=== PATIENT | female | born 1975 | race Caucasian/White ===

== ENCOUNTER 2017-08-21 12:19 | Observation (INO) ==
[2017-08-21 13:02] LABS: Bilirubin,Urine Negative (Negative); Blood,Urine Trace (Negative); Clarity,Urine Clear (Clear); Color,Urine Yellow (Yellow); Glucose,Urine (UA) >=1000 mg/dL (Normal); Ketones,Urine 80 mg/dL (Negative); Leukocyte Esterase,Urine Negative (Negative); Nitrite,Urine Negative (Negative); PH,Urine 5.5 pH Units (5.0-8.0); Protein,Urine 30 mg/dL (Neg-Trace); Specific Gravity,Urine > 1.030 (1.010-1.025); Urobilinogen,Urine Normal (Normal)
[2017-08-21 13:07] LABS: Bacteria,Urine Few per hpf (None-Few); Hyaline Casts,Urine Few per lpf (None-Few); Squamous Epithelial Cell,Urine Many per lpf (None-Few)
[2017-08-21 13:14] LABS: Basophils % 0.2 %; Eosinophils # 0.5 K/mcL (0.0-0.6); Eosinophils % 3.4 %; Hematocrit 45.9 % (35.3-44.9); Hemoglobin 15.3 g/dL (11.5-15.4); Immature Granulocytes % 0.4 % (0-4); Lymphocytes # 2.5 K/mcL (0.6-4.6); Lymphocytes % 18.2 %; Mean Corpuscular HGB Conc 33.3 g/dL (31.6-35.5); Mean Corpuscular Hemoglobin 28.7 pg (28.0-33.3); Mean Platelet Volume 9.9 fL (9.4-12.4); Monocytes # 0.7 K/mcL (0.0-1.3); Monocytes % 5.2 %; Platelet Count 391 K/mcL (140-400); Red Blood Count 5.34 M/mcL (3.82-4.97); Red Cell Distribution Width 13.3 % (11.5-14.5); Segmented Neutrophils % 72.6 %
[2017-08-21 13:28] LABS: RBC,Urine 0-3 per hpf (0-3)
[2017-08-21 14:01] LABS: Alanine Aminotransferase 24 Units/L (7-52); Albumin 4.4 g/dL (3.5-5.7); Albumin/Globulin Ratio 1.3 (1.1-2.2); Alkaline Phosphatase 90 Units/L (34-104); Amylase 24 Units/L (29-103); Aspartate Amino Transferase 24 Units/L (13-39); BUN/Creatinine Ratio 39 (6-26); Bilirubin,Direct 0.1 mg/dL (0.0-0.2); Bilirubin,Indirect 0.3 mg/dL (0.0-1.2); Bilirubin,Total 0.4 mg/dL (0.3-1.0); Blood Urea Nitrogen 19 mg/dL (6-20); Calcium 9.8 mg/dL (8.6-10.3); Carbon Dioxide 21 mEq/L (23-29); Chloride 101 mEq/L (98-107); Globulin 3.5 g/dL (2.4-3.5); Glucose 121 mg/dL (70-105); Lipase 21 Units/L (11-82); Osmolality,Calculated 284 (280-300); Potassium 4.2 mEq/L (3.5-5.1); Sodium 135 mEq/L (136-145); Total Protein 7.9 g/dL (6.4-8.9); eGFR For African Americans > 60 (> 60); eGFR For Non-African Americans > 60 (> 60)
[2017-08-21] MEDS ORDERED: Ketorolac 60 MG/2 ML VIAL IM ONE (14:15)
--- NOTE | 2017-08-21 14:19 | Emergency Department Note ---
Disposition Clinical Impression: Ureteral calculus, left, Ascites Abdominal pain Qualifiers: Abdominal location: right upper quadrant Qualified Code(s): R10.11 - Right upper quadrant pain Disposition: Admitted As Inpatient Condition: Good Time of Disposition: 17:45 Abdominal Pain HPI - General Chief Complaint: ED Abdominal Pain Stated Complaint: ABD Pain Time Seen by Provider: 08/21/17 13:52 Source: patient Mode of arrival: ambulatory Limitations: no limitations, age Nursing Notes Reviewed: Yes Vital Signs Reviewed: Yes - History of Present Illness HPI Narrative: This is a 41 year-old female with history of HTN, HLD, and DM, who presents with diffuse abdominal pain and right flank pain for the past 3 weeks. The pain has worsened (particularly in the right flank) today. Last BM was this morning and was normal; no diarrhea, constipation or blood. Patient denies any associated fever or urinary symptoms. She has seen Dr. Harris and had an EGD on , which she says was negative. A CT of the abdomen has been requested but not obtained yet. Pt Subjective Complaint: abdominal pain Onset (ago): week(s) (3) Consistency: Worsening Location: diffuse, R flank Pain Scale: 9 Quality: sharp Radiation: R flank Migration to: no migration Improves with: nothing Worsens with: nothing Associated symptoms: Denies: nausea, vomiting, diarrhea, fever, chills, constipation, dysuria, hematemesis, hematochezia, melena, hematuria, anorexia Treatments prior to arrival: NSAIDs - Related Data Comment: s/p hysterectomy Home Medications Medication Instructions Recorded Confirmed Ascorbic Acid [Vitamin C] 1,000 mg PO DAILY 08/21/17 08/21/17 Atorvastatin Calcium [Lipitor] 20 mg PO HS 08/21/17 08/21/17 Calcium Carbonate [Calcium] 500 mg PO DAILY 08/21/17 08/21/17 Canagliflozin [Invokana] 10 mg PO DAILY 08/21/17 08/21/17 Cholecalciferol (D-3) [Vitamin D] 1,000 unit PO DAILY 08/21/17 08/21/17 Cyanocobalamin (Vitamin B-12) 1,000 mcg PO DAILY 08/21/17 08/21/17 [Vitamin B12] DULoxetine [Cymbalta] 20 mg PO DAILY 08/21/17 08/21/17 Dicyclomine [Bentyl] 10 mg PO QID 08/21/17 08/21/17 Exenatide Microspheres [Bydureon 2 mg PO QWEEK 08/21/17 08/21/17 Pen] Lisinopril [Lisinopril] 2.5 mg PO DAILY 08/21/17 08/21/17 Omeprazole [PriLOSEC] 20 mg PO BID 08/21/17 08/21/17 metFORMIN [Glucophage] 500 mg PO BIDWM 08/21/17 08/21/17 Allergies Allergy/AdvReac Type Severity Reaction Status Date / Time No Known Allergies Allergy Verified 08/08/17 10:28 All systems ED: reviewed and negative except as stated. Constitutional: Denies: fever Cardiovascular: Denies: chest pain Respiratory: Denies: dyspnea Gastrointestinal: Reports: as per HPI, abdominal pain. Denies: nausea, vomiting , constipation, hematemesis, melena, hematochezia Genitourinary: Reports: as per HPI Abdominal Pain PMH - Past Medical History Medical history: Reports: arthritis, diabetes, GERD, hyperlipidemia, hypertension Female Surgical History: Reports: hysterectomy, orthopedic, other Psychiatric history: Reports: anxiety, depression - Social History Smoking status: Current every day smoker Alcohol use: Reports: occasionally Drug use: Reports: none Physical Exam - General Limitations: no limitations General appearance: alert - Head Head exam: atraumatic, normocephalic - Eye Eye exam: Present: normal appearance - ENT ENT exam: normal exam, normal oropharynx - Neck Neck exam: Present: normal inspection - Respiratory Respiratory exam: Present: normal lung sounds bilaterally. Absent: wheezes - Cardiovascular Cardiovascular exam: Present: regular rate, normal rhythm, normal heart sounds - Abdominal Exam Abdominal exam: Present: soft, Non-Tender, normal bowel sounds. Absent: distention, guarding, rebound, rigidity - Extremities Exam Extremities exam: Present: normal inspection. Absent: calf tenderness - Back Exam Back exam: Present: normal inspection. Absent: tenderness, CVA tenderness (R), CVA tenderness (L) - Neurological Exam Neurological exam: Present: alert, oriented X3 - Psychiatric Psychiatric exam: Present: normal affect, normal mood - Skin Skin exam: Present: warm, dry, intact Course - Reevaluation(s) Reevaluation #1: On recheck, patient remains comfortable-appearing. She has a left ureteral stone (which I have confirmed by reviewing the CT myself), but her flank pain is on the right. Urine is concentrated and a somewhat dirty sample, but is not clearly infected. We will hydrate and check a cath specimen. CT showed abnormalities concerning for peritoneal carcinomatosis. I have paged Dr. Villafuerte for his recommendations. Time: 15:46 - Consultations Consultation #1: Discussed case with Dr. Villafuerte. He says the next step would be diagnostic parascentesis. He is available to see patient in his clinic tomorrow or Friday. I've paged the hospitalist to discuss brining patient for IR to perform the procedure tomorrow, vs. discharge/close outpatient follow-up. Time: 17:00 Consultation #2: Discussed case with Dr. Villatoro. He has accepted patient for obs, to tap ascites, and for symptom control. Time: 17:41 Vital Signs Temperature 98.2 F 08/21/17 12:26 Pulse Rate 110 08/21/17 12:26 Respiratory Rate 18 08/21/17 12:26 Blood Pressure 139/91 08/21/17 12:26 O2 Sat by Pulse Oximetry 95 08/21/17 12:26 Temperature 98.2 F 08/21/17 20:27 Pulse Rate 97 08/21/17 20:27 Respiratory Rate 16 08/21/17 20:27 Blood Pressure 144/90 08/21/17 20:27 O2 Sat by Pulse Oximetry 94 08/21/17 20:27 Oxygen Delivery Oxygen Delivery Room Air Abdominal Pain - Lab Data Lab results reviewed: Yes I reviewed the patient's lab results. Result diagrams: 08/21/17 12:56 08/21/17 12:56 Lab Results 08/21/17 08/21/17 08/21/17 Range/Units 12:55 12:56 12:56 WBC 13.8 H (4.3-11.1) K/mcL RBC 5.34 H (3.82-4.97) M/mcL Hgb 15.3 (11.5-15.4) g/dL Hct 45.9 H (35.3-44.9) % MCV 86.0 (83.0-100.0) fL MCH 28.7 (28.0-33.3) pg MCHC 33.3 (31.6-35.5) g/dL RDW 13.3 (11.5-14.5) % Plt Count 391 (140-400) K/mcL MPV 9.9 (9.4-12.4) fL Immature Gran % 0.4 (0-4) % Seg Neutrophils % 72.6 % Lymphocytes % 18.2 % Monocytes % 5.2 % Eosinophils % 3.4 % Basophils % 0.2 % Neutrophils # 10.0 H (1.6-8.9) K/mcL Lymphocytes # 2.5 (0.6-4.6) K/mcL Monocytes # 0.7 (0.0-1.3) K/mcL Eosinophils # 0.5 (0.0-0.6) K/mcL Basophils # 0.0 (0.0-0.2) K/mcL Sodium 135 L (136-145) mEq/L Potassium 4.2 (3.5-5.1) mEq/L Chloride 101 (98-107) mEq/L Carbon Dioxide 21 L (23-29) mEq/L BUN 19 (6-20) mg/dL Creatinine 0.49 L (0.60-1.20) mg/dL Est GFR ( Amer) > 60 (> 60) Est GFR (Non-Af Amer) > 60 (> 60) BUN/Creatinine Ratio 39 H (6-26) Glucose 121 H (70-105) mg/dL Est Mean Plasma Glucose mg/dl Hemoglobin A1c ( - 5.6) % Calculated Osmolality 284 (280-300) Calcium 9.8 (8.6-10.3) mg/dL Total Bilirubin 0.4 (0.3-1.0) mg/dL Direct Bilirubin 0.1 (0.0-0.2) mg/dL Indirect Bilirubin 0.3 (0.0-1.2) mg/dL AST 24 (13-39) Units/L ALT 24 (7-52) Units/L Alkaline Phosphatase 90 (34-104) Units/L Serum Total Protein 7.9 (6.4-8.9) g/dL Albumin 4.4 (3.5-5.7) g/dL Globulin 3.5 (2.4-3.5) g/dL Albumin/Globulin Ratio 1.3 (1.1-2.2) Amylase 24 L (29-103) Units/L Lipase 21 (11-82) Units/L Urine Color Yellow (Yellow) Urine Clarity Clear (Clear) Urine pH 5.5 (5.0-8.0) pH Units Ur Specific [place] > 1.030 H (1.010-1.025) Urine Protein 30 H (Neg-Trace) mg/dL Urine Glucose (UA) >=1000 H (Normal) mg/dL Urine Ketones 80 H (Negative) mg/dL Urine Blood Trace H (Negative) Urine Nitrite Negative (Negative) Urine Bilirubin Negative (Negative) Urine Urobilinogen Normal (Normal) mg/dL Ur Leukocyte Esterase Negative (Negative) Urine Microscopic RBC 0-3 (0-3) per hpf Urine Microscopic WBC 3-5 H (0-3) per hpf Ur Squamous Epith Cells Many H (None-Few) per lpf Urine Bacteria Few (None-Few) per hpf Hyaline Casts Few (None-Few) per lpf Ur Culture Indicated? NO (NO) 08/21/17 Range/Units 12:56 WBC (4.3-11.1) K/mcL RBC (3.82-4.97) M/mcL Hgb (11.5-15.4) g/dL Hct (35.3-44.9) % MCV (83.0-100.0) fL MCH (28.0-33.3) pg MCHC (31.6-35.5) g/dL RDW (11.5-14.5) % Plt Count (140-400) K/mcL MPV (9.4-12.4) fL Immature Gran % (0-4) % Seg Neutrophils % % Lymphocytes % % Monocytes % % Eosinophils % % Basophils % % Neutrophils # (1.6-8.9) K/mcL Lymphocytes # (0.6-4.6) K/mcL Monocytes # (0.0-1.3) K/mcL Eosinophils # (0.0-0.6) K/mcL Basophils # (0.0-0.2) K/mcL Sodium (136-145) mEq/L Potassium (3.5-5.1) mEq/L Chloride (98-107) mEq/L Carbon Dioxide (23-29) mEq/L BUN (6-20) mg/dL Creatinine (0.60-1.20) mg/dL Est GFR ( Amer) (> 60) Est GFR (Non-Af Amer) (> 60) BUN/Creatinine Ratio (6-26) Glucose (70-105) mg/dL Est Mean Plasma Glucose 180 mg/dl Hemoglobin A1c 7.9 H ( - 5.6) % Calculated Osmolality (280-300) Calcium (8.6-10.3) mg/dL Total Bilirubin (0.3-1.0) mg/dL Direct Bilirubin (0.0-0.2) mg/dL Indirect Bilirubin (0.0-1.2) mg/dL AST (13-39) Units/L ALT (7-52) Units/L Alkaline Phosphatase (34-104) Units/L Serum Total Protein (6.4-8.9) g/dL Albumin (3.5-5.7) g/dL Globulin (2.4-3.5) g/dL Albumin/Globulin Ratio (1.1-2.2) Amylase (29-103) Units/L Lipase (11-82) Units/L Urine Color (Yellow) Urine Clarity (Clear) Urine pH (5.0-8.0) pH Units Ur Specific [place] (1.010-1.025) Urine Protein (Neg-Trace) mg/dL Urine Glucose (UA) (Normal) mg/dL Urine Ketones (Negative) mg/dL Urine Blood (Negative) Urine Nitrite (Negative) Urine Bilirubin (Negative) Urine Urobilinogen (Normal) mg/dL Ur Leukocyte Esterase (Negative) Urine Microscopic RBC (0-3) per hpf Urine Microscopic WBC (0-3) per hpf Ur Squamous Epith Cells (None-Few) per lpf Urine Bacteria (None-Few) per hpf Hyaline Casts (None-Few) per lpf Ur Culture Indicated? (NO) - Radiology Data Radiology results reviewed: Yes I reviewed the patient's radiology results. CT/CT abd pelvis wo no iv no oral IMPRESSION: 4 mm proximal left ureteral stone, with minimal hydronephrosis. Ascites and omental nodularity. Findings concerning for peritoneal carcinomatosis. Moderate size left pleural effusion
[2017-08-21] MEDS ORDERED: 0.9 % Sodium Chloride 1,000 ML IVC ONE (15:38)
[2017-08-21] MEDS ORDERED: *HR* Nalbuphine 20 MG/ML AMPUL IVP STA (15:39)
[2017-08-21] MEDS ORDERED: *HR* Nalbuphine 10 MG/ML AMPUL IVP STA ×2 (15:49→19:18)
[2017-08-21] MEDS ORDERED: traMADol 50 MG TABLET PO PRN (20:44)
[2017-08-21] MEDS ORDERED: Naloxone 0.4 MG/ML INJ IVP PRN (20:44)
[2017-08-21] MEDS ORDERED: 0.9 % Sodium Chloride 1,000 ML IVC SCH (20:45)
[2017-08-21] MEDS ORDERED: Dextrose Gel 15 GM/37.5 ML TUBE PO PRN ×2 (20:48→22:12)
[2017-08-21 21:21] LABS: Estimated Average Glucose 180 mg/dl; Hemoglobin A1C 7.9 %
--- NOTE | 2017-08-21 21:28 | Internal Med History&Physical ---
Date of Encounter: 08/21/17 Time of Encounter: 20:05 Internal Medicine - H&P: HPI Chief complaint: right flank pain and abdominal bloating Admitted From: Emergency Dept Plans for Post Hospital Care: Home History of present illness: Ms. Major is a 41 year old female who presents to the ER today with right- sided flank pain and abdominal bloating. Symptoms started about 2-3 weeks ago and have progressively worsened. Because of persistent worsening symptoms, she sought help in the ER today due to lack of improvement over the last few weeks. She also had EGD recently, which was negative. Workup in ER revealed patient to have left ureteral stone and ascites on CT scan imaging. There was also a finding of what appeared to be peritoneal carcinomatosis concerning for possible underlying malignancy. Patient was therefore admitted to the hospitalist service. Upon my assessment of the patient, she reiterates the above history. She denies any fevers, chills, or night sweats. She denies any dysuria, hematuria, protracted nausea or vomiting, or diarrhea. Heartburn and stomach upset are easily relieved by omeprazole. She does note that she has had increasing abdominal girth and bloating the last 2 weeks. She has had some subjective weight gain but has not weighed herself to document. She denies any change in bowel habits. She has had some constipation but that is chronic. Appetite is unchanged. She denies any difficulty breathing. Of note, patient states she had a total hysterectomy about 3 years ago for precancerous lesions in her uterus. This was done at [facility], and she has had no recurrence and/or concerning findings since then. Past Med Surg Social Fam HX - Past Medical History Attestation: Yes The following information was validated with the patient. Source: patient, old records reviewed Medical history: arthritis, diabetes, GERD, hyperlipidemia, hypertension Psychiatric history: anxiety, depression - Past Surgical History Surgical History: orthopedic, other, KEKE/BSO (precancerous uterine lesion -- per patient -- [facility]) - Social History Smoking Status: Current every day smoker Packs per day: 0.5 Smokeless Tobacco Status: No Alcohol use: occasionally Drug use: none Current living situation: Home, With Family Activity Level: Independent ambulation Recent Out of Country Travel Within the Last 8 Weeks: No - Family History Mother Living Status: Still Living Hx Family Cardiac Disorders: Yes - Additional Family History Additional family history: No FH GOVERNMENT AFFAIRS FELLOW cancer; +FH colon CA Internal Medicine - H&P: Meds Ascorbic Acid [Vitamin C] 1,000 mg PO DAILY 08/21/17 [History] Atorvastatin Calcium [Lipitor] 20 mg PO HS 08/21/17 [History] Calcium Carbonate [Calcium] 500 mg PO DAILY 08/21/17 [History] Canagliflozin [Invokana] 10 mg PO DAILY 08/21/17 [History] Cholecalciferol (D-3) [Vitamin D] 1,000 unit PO DAILY 08/21/17 [History] Cyanocobalamin (Vitamin B-12) [Vitamin B12] 1,000 mcg PO DAILY 08/21/17 [History ] DULoxetine [Cymbalta] 20 mg PO DAILY 08/21/17 [History] Dicyclomine [Bentyl] 10 mg PO QID 08/21/17 [History] Exenatide Microspheres [Bydureon Pen] 2 mg PO QWEEK 08/21/17 [History] Lisinopril [Lisinopril] 2.5 mg PO DAILY 08/21/17 [History] Omeprazole [PriLOSEC] 20 mg PO BID 08/21/17 [History] metFORMIN [Glucophage] 500 mg PO BIDWM 08/21/17 [History] 3 Allergy/AdvReac Type Severity Reaction Status Date / Time No Known Allergies Allergy Verified 08/08/17 10:28 - Constitutional Constitutional: no chills, no fever(s), no night sweats - EENT Eyes: no blurry vision, no change in vision Ears: no ear pain, no tinnitus Nose, mouth and throat: no nasal congestion, no sinus pressure, no sore throat - Cardiovascular Cardiovascular ROS IM: no chest pain, no dyspnea, no dyspnea on exertion, no edema, no syncope - Respiratory Respiratory: no cough, no hemoptysis - Gastrointestinal Gastrointestinal: abdominal pain, bloating, constipation, dyspepsia, heartburn, no diarrhea, no hematemesis, no hematochezia, no melena, no nausea, no vomiting - Genitourinary Genitourinary: flank pain (right), no dysuria, no hematuria - Musculoskeletal Musculoskeletal ROS IM: no arthralgias, no myalgias - Integumentary Integumentary IM: no rash, no jaundice - Neurological Neurological ROS: no dizziness, no focal weakness, no frequent falls, no headache(s) - Psychiatric Psychiatric: no anxiety, no depression - Endocrine Endocrine IM: no polydipsia, no polyuria - Hematologic/Lymphatic Hematologic/Lymphatic: no easy bruising, no lymphadenopathy - Allergic/Immunologic Allergic/Immunologic: no wheezing, no GI upset with certain foods - Constitutional Vitals: Temp Pulse Resp BP Pulse Ox 98.2 F 97 16 144/90 94 08/21/17 20:27 08/21/17 20:27 08/21/17 20:27 08/21/17 20:27 08/21/17 20:27 General appearance: Present: cooperative, A&O X 3, pleasant, no acute distress, answers questions appropriately - Head Head exam: Present: atraumatic, normal inspection - Eye Eye exam: Present: EOMI, PERRL. Absent: scleral icterus Pupils: Present: normal accommodation - ENT ENT exam: Present: normal exam, normal oropharynx - Neck Neck exam general surgery: Present: full ROM, supple. Absent: tenderness, nuchal rigidity, thyromegaly - Respiratory Respiratory exam: Present: decreased breath sounds. Absent: chest wall tenderness, rales, respiratory distress, rhonchi, wheezes - Cardiovascular Cardiovascular exam: Present: RRR, +S1, +S2. Absent: diastolic murmur, systolic murmur - GI/Abdominal GI/Abdominal exam: Present: distended, normal bowel sounds, tenderness (mild RUQ ), no peritoneal signs. Absent: guarding, hepatomegaly, mass, rebound, splenomegaly Additional comments: +dullness to percussion; distended; suspect fluid wave on exam - Extremities Exam Extremities exam: Present: full ROM, normal capillary refill, warm, radial pulses palpable and symmetrical. Absent: calf tenderness, joint swelling, pedal edema, tenderness - Back Exam Back exam: Present: CVA tenderness (R), normal inspection. Absent: CVA tenderness (L) - Neurological Exam Neurological exam: Present: alert, CN II-XII intact, oriented X3, no focal deficits - Psychiatric Psychiatric exam: Present: normal affect, normal mood - Skin Skin exam: Present: dry, warm. Absent: rash Internal Med - H&P Results - Labs CBC & Chem 7: 08/21/17 12:56 08/21/17 12:56 - Diagnostic Studies CT scan - abdomen Status: image reviewed by me (ascites noted; reprot reviewed) - Assessment and plan (1) Abdominal pain Current Visit: Yes Status: Acute Assessment and plan: 1. Will proceed with diagnostic and therapeutic paracentesis per IR. 2. IR consulted to perform procedure tomorrow. 3. Peritoneal fluid labs ordered for analysis -- including cytology. 4. HEM/ONC consulted through ER. 5. Suspect GOVERNMENT AFFAIRS FELLOW source given history of KEKE/BSO 3 years ago for precancerous lesion in uterus. 6. Will order RUQ U/S to rule out GB disease and to assess liver findings. Qualifiers: Abdominal location: right upper quadrant Qualified Code(s): R10.11 - Right upper quadrant pain (2) Ascites Current Visit: Yes Status: Suspected Assessment and plan: 1. Suspect GOVERNMENT AFFAIRS FELLOW malignancy source. 2. Diagnostic and therapeutic paracentesis tomorrow per IR. 3. Peritoneal fluid labs ordered. Qualifiers: Ascites type: malignant Qualified Code(s): R18.0 - Malignant ascites (3) Ureteral calculus, left Current Visit: Yes Status: Acute Assessment and plan: 1. Consult urology for further work-up and intervention if necessary. (4) DVT prophylaxis Current Visit: Yes Status: Acute Assessment and plan: 1. Heparin SQ.
[2017-08-21] MEDS ORDERED: D5% in Water 1,000 ML IVC PRN (22:11)
[2017-08-21] MEDS ORDERED: Acetaminophen 325 MG TABLET PO PRN (22:11)
[2017-08-21] MEDS ORDERED: *HR* Dextrose 50 % in Water (Syg) 50 ML SYRINGE IVP PRN (22:12)
[2017-08-21] MEDS: *HR* Heparin 5,000 UNIT/ML VIAL SQ SCH (22:19)
[2017-08-22] MEDS: OXYCODONE Oral CONC 10 MG/0.5 ML ORAL.SYG SL PRN ×3 (00:49→16:02)
[2017-08-22] MEDS: *HR* HYDROcodone/Acet 5/325 mg TABLET PO PRN ×2 (05:16→11:22)
[2017-08-22] MEDS: *HR* Heparin 5,000 UNIT/ML VIAL SQ SCH (05:17)
[2017-08-22 05:28] LABS: Basophils % 0.3 %; Eosinophils # 0.4 K/mcL (0.0-0.6); Eosinophils % 4.6 %; Hematocrit 42.7 % (35.3-44.9); Immature Granulocytes % 0.3 % (0-4); Lymphocytes # 2.1 K/mcL (0.6-4.6); Lymphocytes % 21.4 %; Mean Corpuscular HGB Conc 32.1 g/dL (31.6-35.5); Mean Corpuscular Hemoglobin 27.7 pg (28.0-33.3); Mean Corpuscular Volume 86.4 fL (83.0-100.0); Mean Platelet Volume 9.9 fL (9.4-12.4); Monocytes # 0.7 K/mcL (0.0-1.3); Monocytes % 6.8 %; Neutrophils # 6.4 K/mcL (1.6-8.9); Platelet Count 353 K/mcL (140-400); Red Blood Count 4.94 M/mcL (3.82-4.97); Red Cell Distribution Width 13.4 % (11.5-14.5); Segmented Neutrophils % 66.6 %
[2017-08-22 05:30] LABS: Hemoglobin 13.7 g/dL (11.5-15.4)
[2017-08-22 05:31] LABS: INR 1.2; Prothrombin Time 12.5 Seconds (9.4-12.1)
[2017-08-22 05:34] LABS: Activated Partial Thrombo Time 34.7 Seconds (26.0-36.0)
[2017-08-22 05:47] LABS: Alanine Aminotransferase 20 Units/L (7-52); Albumin 3.8 g/dL (3.5-5.7); Albumin/Globulin Ratio 1.2 (1.1-2.2); Alkaline Phosphatase 71 Units/L (34-104); Aspartate Amino Transferase 21 Units/L (13-39); BUN/Creatinine Ratio 40 (6-26); Bilirubin,Total 0.3 mg/dL (0.3-1.0); Blood Urea Nitrogen 21 mg/dL (6-20); Calcium 8.8 mg/dL (8.6-10.3); Carbon Dioxide 21 mEq/L (23-29); Chloride 106 mEq/L (98-107); Globulin 3.1 g/dL (2.4-3.5); Glucose 127 mg/dL (70-105); Magnesium 1.8 mg/dL (1.6-2.6); Osmolality,Calculated 295 (280-300); Potassium 4.1 mEq/L (3.5-5.1); Sodium 140 mEq/L (136-145); Total Protein 6.9 g/dL (6.4-8.9); eGFR For African Americans > 60 (> 60); eGFR For Non-African Americans > 60 (> 60)
[2017-08-22 06:51] VITALS: BP 110/80
--- NOTE | 2017-08-22 07:03 | Urology - Consult Note ---
Date of Encounter: 08/22/17 Time of Encounter: 07:01 - Assessment and Plan (1) Ureteral calculus, left Current Visit: Yes Status: Acute Assessment and plan: 41-year-old woman with a history of a left proximal ureteral stone. Currently, she is asymptomatic from this left ureteral stone. Her pain is on the contralateral side. She does not have evidence of urinary tract infection. She is voiding well. Her renal function is normal. She wishes to try to pass the stone. I think that is a reasonable plan. I will have her return to the office in 2-3 weeks. She should try to strain her urine and collect any stone fragments that she notes on. Otherwise, we may need to repeat a CT in 4 weeks to determine if the stone has passed. Thank you very much for allowing me to participate in this patient's care. Please call with any questions. Urology CN:MIRACLE Consult date: 08/22/17 Reason for consult Urology: Other (ureteral stone) History of present illness: 41-year-old woman presents with a history of abdominal pain and right flank pain. The pain has been present for a little while. She was brought to the emergency room and a CT scan was obtained which showed evidence of ascites fluid. There is concern for carcinomatosis. The CT also showed a small 2-3 mm left proximal ureteral stone. There was mild hydronephrosis. Her renal function is stable and there is no evidence of urinary tract infection. She had a hysterectomy about 3 years ago for possible dysplasia within her uterus. She is scheduled today for a paracentesis as well as a right upper quadrant ultrasound. She denies any flank pain or history of nephrolithiasis. She says she is voiding well. At this point she is not concerned about the kidney stone. Past Med Surg Social Fam HX - Past Medical History Medical history: arthritis, diabetes, GERD, hyperlipidemia, hypertension Psychiatric history: anxiety, depression - Past Surgical History Surgical History: orthopedic, other, KEKE/BSO (precancerous uterine lesion -- per patient -- [facility]) - Social History Smoking Status: Current every day smoker Packs per day: 0.5 Smokeless Tobacco Status: No Alcohol use: occasionally Drug use: none - Family History Mother Living Status: Still Living Hx Family Cardiac Disorders: Yes Medications and Allergies Ascorbic Acid [Vitamin C] 1,000 mg PO DAILY 08/21/17 [History] Atorvastatin Calcium [Lipitor] 20 mg PO HS 08/21/17 [History] Calcium Carbonate [Calcium] 500 mg PO DAILY 08/21/17 [History] Canagliflozin [Invokana] 10 mg PO DAILY 08/21/17 [History] Cholecalciferol (D-3) [Vitamin D] 1,000 unit PO DAILY 08/21/17 [History] Cyanocobalamin (Vitamin B-12) [Vitamin B12] 1,000 mcg PO DAILY 08/21/17 [History ] DULoxetine [Cymbalta] 20 mg PO DAILY 08/21/17 [History] Dicyclomine [Bentyl] 10 mg PO QID 08/21/17 [History] Exenatide Microspheres [Bydureon Pen] 2 mg PO QWEEK 08/21/17 [History] Lisinopril [Lisinopril] 2.5 mg PO DAILY 08/21/17 [History] Omeprazole [PriLOSEC] 20 mg PO BID 08/21/17 [History] metFORMIN [Glucophage] 500 mg PO BIDWM 08/21/17 [History] 3 Allergy/AdvReac Type Severity Reaction Status Date / Time No Known Allergies Allergy Verified 08/08/17 10:28 Review of Systems - Constitutional no chills, no fever(s) - EENT Nose, mouth and throat: no dizziness - Cardiovascular no chest pain - Respiratory no dyspnea - Gastrointestinal no nausea, no vomiting - Genitourinary Genitourinary: flank pain, no hematuria - Musculoskeletal no back pain - Integumentary no erythema, no rash - Neurological no weakness - Psychiatric no suicidal ideation - Hematologic/Lymphatic no easy bleeding - Allergic/Immunologic no wheezing Exam Initial Vital Signs Temp Pulse Resp BP Pulse Ox 98.2 F 110 18 139/91 95 08/21/17 12:26 08/21/17 12:26 08/21/17 12:26 08/21/17 12:26 08/21/17 12:26 - General physical appearance Present: well developed, well nourished, no distress - Eyes Absent: icteric - ENT Present: normal nares - Neck Present: trachea midline - Respiratory Present: normal respiratory effort - Cardiovascular Cardiovascular exam IM: RRR - Abdomen Abdomen: Present: soft - Integumentary Present: no rash - Neurologic Present: normal coordination - Musculoskeletal Present: other (grossly normal) Urology Results - Labs 08/22/17 05:02 08/22/17 05:02 Abnormal lab results MCH 27.7 pg (28.0-33.3) L 08/22/17 05:02 PT 12.5 Seconds (9.4-12.1) H 08/22/17 05:02 Carbon Dioxide 21 mEq/L (23-29) L 08/22/17 05:02 BUN 21 mg/dL (6-20) H 08/22/17 05:02 Creatinine 0.52 mg/dL (0.60-1.20) L 08/22/17 05:02 BUN/Creatinine Ratio 40 (6-26) H 08/22/17 05:02 Glucose 127 mg/dL (70-105) H 08/22/17 05:02 POC Glucose 122 mg/dL (70-99) H 08/22/17 05:09 Hemoglobin A1c 7.9 % (-5.6) H 08/21/17 12:56 Amylase 24 Units/L (29-103) L 08/21/17 12:56 Ur Specific [place] > 1.030 (1.010-1.025) H 08/21/17 12:55 Urine Protein 30 mg/dL (Neg-Trace) H 08/21/17 12:55 Urine Glucose (UA) >=1000 mg/dL (Normal) H 08/21/17 12:55 Urine Ketones 80 mg/dL (Negative) H 08/21/17 12:55 Urine Blood Trace (Negative) H 08/21/17 12:55 Urine Microscopic WBC 3-5 per hpf (0-3) H 08/21/17 12:55 Ur Squamous Epith Cells Many per lpf (None-Few) H 08/21/17 12:55 Diabetes panel 08/22/17 Range/Units 05:02 Sodium 140 (136-145) mEq/L Potassium 4.1 (3.5-5.1) mEq/L Chloride 106 (98-107) mEq/L Carbon Dioxide 21 L (23-29) mEq/L BUN 21 H (6-20) mg/dL Creatinine 0.52 L (0.60-1.20) mg/dL Glucose 127 H (70-105) mg/dL Calcium 8.8 (8.6-10.3) mg/dL AST 21 (13-39) Units/L ALT 20 (7-52) Units/L Alkaline Phosphatase 71 (34-104) Units/L Albumin 3.8 (3.5-5.7) g/dL Calcium panel 08/22/17 Range/Units 05:02 Calcium 8.8 (8.6-10.3) mg/dL Albumin 3.8 (3.5-5.7) g/dL Pituitary panel 08/22/17 Range/Units 05:02 Sodium 140 (136-145) mEq/L Potassium 4.1 (3.5-5.1) mEq/L Chloride 106 (98-107) mEq/L Carbon Dioxide 21 L (23-29) mEq/L BUN 21 H (6-20) mg/dL Creatinine 0.52 L (0.60-1.20) mg/dL Glucose 127 H (70-105) mg/dL Calcium 8.8 (8.6-10.3) mg/dL Adrenal panel 08/22/17 Range/Units 05:02 Sodium 140 (136-145) mEq/L Potassium 4.1 (3.5-5.1) mEq/L Chloride 106 (98-107) mEq/L Carbon Dioxide 21 L (23-29) mEq/L BUN 21 H (6-20) mg/dL Creatinine 0.52 L (0.60-1.20) mg/dL Glucose 127 H (70-105) mg/dL Calcium 8.8 (8.6-10.3) mg/dL Total Bilirubin 0.3 (0.3-1.0) mg/dL AST 21 (13-39) Units/L ALT 20 (7-52) Units/L Alkaline Phosphatase 71 (34-104) Units/L Albumin 3.8 (3.5-5.7) g/dL All other labs normal. - Imaging CT scan - abdomen: report reviewed, image reviewed CT scan - pelvis: report reviewed, image reviewed Consult Discharge Plan - Plan Referrals: Cyndi Morales, CAROL [Primary Care Provider] -
[2017-08-22] MEDS ORDERED: Insulin LISPRO 300 UNITS/3 ML VIAL SQ SCH (07:30)
[2017-08-22] MEDS ORDERED: Cholecalciferol (D-3) 1,000 UNIT TABLET PO SCH (09:00)
[2017-08-22] MEDS ORDERED: Cyanocobalamin (B-12) 1,000 MCG TABLET PO SCH (09:00)
--- NOTE | 2017-08-22 10:26 | IR Procedure Note ---
Date of procedure: 08/22/17 Consent Obtained: Written consent Timeout: Correct patient and procedure verified, Time out performed, Skin prep completed Local anesthetic: Lidocaine 1% Indications: Ascites Procedure Performed: Paracentesis Was there an physician assistant primary care present: No Estimated blood loss (cc): 0 Complications: None; Tolerated procedure well Specimen: To path
[2017-08-22 14:47] LABS: Total Protein,Peritoneal Fluid 4.8 g/dL (No Ref Range)
--- NOTE | 2017-08-22 15:06 | Discharge Summary ---
- NOTES TO OUTPATIENT PROVIDER Notes to Outpatient Provider: Patient underwent a diagnostic paracentesis the cytology results are pending at the time of this discharge .I have discussed with the charge nurse Lam at [facility] at phone number to discuss it with the patient's primary care physician. They will be working on getting a new appointment with Cydni Morales CNP within the next week to discuss the findings of the cytology and plan further care Orders not resulted at time of discharge: Pending orders 08/21/17 20:44 Cell Cnt w Dif, Peritoneal Fl [BF] Routine Culture,Body Fluid [RM] Routine Pathologist Review, Body Fluid [BF] Routine Cytology Other [PTH] Routine Date of Encounter: 08/22/17 Time of Encounter: 15:04 - Discharge Diagnosis (1) Ureteral calculus, left Priority: Secondary Status: Acute (2) Abdominal pain Priority: Secondary Status: Acute Qualifiers: Abdominal location: right upper quadrant Qualified Code(s): R10.11 - Right upper quadrant pain (3) Ascites Priority: Primary Status: Suspected Qualifiers: Ascites type: malignant Qualified Code(s): R18.0 - Malignant ascites (4) DVT prophylaxis Priority: Secondary Status: Acute Hospital course: Ms. Major is a 41 year old female was admitted for from the ER with right- sided flank pain and abdominal bloating which started about 2-3 weeks prior to arrival. Patient does have a history of bilateral salpingo-oophorectomy and hysterectomy for questionable renal malignant changes about 3 years ago. she was diagnosed with ascites and questionable Peritoneal carcinomatosis on a CAT scan done in the ER .She underwent a diagnostic and therapeutic paracentesis and the fluid was sent for further analysis including cytology and the report is pending at the time of this discharge. She also underwent a right upper quadrant ultrasound which showed no masses and no gallstones and mild cirrhotic changes. I have discussed her follow up very closely with her outpatient nurse practitioner's office at [facility] ( Cyndi Morales CNP Office # - Left message anton Castillo) and they will be following up within the next week to make arrangement for followup Patient also had a small left-sided nephrolithiasis for which she was seen by urology and they have recommended conservative management and hope that the stone will pass on its own Discharge discussed with: patient Time spent discussing smoking cessation with patient: more than 10 minutes - Time Spent with Patient Total time spent providing and/or coordinating discharge services: Greater than 30 minutes - Discharge Medications Home Medications: Ascorbic Acid [Vitamin C] 1,000 mg PO DAILY 08/21/17 [History] Atorvastatin Calcium [Lipitor] 20 mg PO HS 08/21/17 [History] Calcium Carbonate [Calcium] 500 mg PO DAILY 08/21/17 [History] Canagliflozin [Invokana] 10 mg PO DAILY 08/21/17 [History] Cholecalciferol (D-3) [Vitamin D] 1,000 unit PO DAILY 08/21/17 [History] Cyanocobalamin (Vitamin B-12) [Vitamin B12] 1,000 mcg PO DAILY 08/21/17 [History ] DULoxetine [Cymbalta] 20 mg PO DAILY 08/21/17 [History] Dicyclomine [Bentyl] 10 mg PO QID 08/21/17 [History] Exenatide Microspheres [Bydureon Pen] 2 mg PO QWEEK 08/21/17 [History] Lisinopril 2.5 mg PO DAILY 08/21/17 [History] Omeprazole [PriLOSEC] 20 mg PO BID 08/21/17 [History] metFORMIN [Glucophage] 500 mg PO BIDWM 08/21/17 [History] Allergies/Adverse Reactions: 3 Allergy/AdvReac Type Severity Reaction Status Date / Time No Known Allergies Allergy Verified 08/08/17 10:28 Date of admission: 08/21/17 17:55 Primary care physician: Cyndi Morales CNP Consults: 08/21/17 20:44 Consult to Interventional Radiology [CONS] Routine Consulting Provider: Radiology Interventional Cols Reason for Consult: diagnostic and therapeutic paracentesis -- fluid labs ordered. Call Completed: No Consult to Urology [CONS] Routine Consulting Provider: Urology Nina Reason for Consult: ureteral stone Call Completed: No 08/21/17 20:45 Consult to Physician [CONS] Routine Consulting Provider: Teressa Villafuerte Reason for Consult: peritoneal carcinamatosis Call Completed: No - Constitutional Vitals: Temp Pulse Resp BP Pulse Ox 98.2 F 93 16 110/80 96 08/22/17 06:50 08/22/17 06:50 08/22/17 06:50 08/22/17 06:50 08/22/17 06:50 General appearance: Present: cooperative, A&O X 3, pleasant, no acute distress, answers questions appropriately Exam: GENERAL: Alert, moderate distress, cooperative EYES: PERRLA, EOMI EARS: External ears normal, canals clear OROPHARYNX: Lips, mucosa, and tongue normal. Teeth and gums normal. Oropharynx normal. NECK: No jugulovenous distention, No carotid bruits, Carotid pulse normal contour, Supple LUNGS: Lungs clear to auscultation, Good diaphragmatic excursion CARDIAC: Normal S1 and S2; no rubs, murmurs, or gallops ABDOMEN: Abdomen soft, Mild TTP RUQ> Distended. no guarding EXTREMITIES: Extremities normal, no deformities, edema, clubbing or skin discoloration. Good capillary refill., No ulcers NEURO: Gait normal. Reflexes normal and symmetric. Sensation grossly intact, Cranial nerves II-XII intact PULSES: 2+ radial, 2+ carotid Rest of the exam is non contributory - Patient Status Disposition: Home, Self-Care Functional capacity at discharge: independent ambulation Overall status at discharge: patient is back to baseline - Discharge Instructions Follow Up With: Arlene Rosa MD [Partnered Physician] - 09/12/17 11:00 am Bryson Williamson MD [Partnered Physician] - 09/11/17 1:45 pm - Diet and Activity Activity: as per physical therapy, increase activity as tolerated Diet: advance to your usual diet
[2017-08-22 15:41] LABS: RBC,Peritoneal Fluid 0.002 M/mcL
[2017-08-22 15:44] LABS: Appearance of Peritoneal Fl HAZY (Clear)
== END 2017-08-22 16:38 | disposition home or self-care (01) ==
LOC: 3ANU 12:19 → EMEROO 12:19 → SUATTDRO 17:55 → 3ANU 19:49
PROVIDERS: ADMIT Hospitalist; ATTEND Internal Medicine